=== PATIENT | female | born 1985 | race Caucasian/White ===

== ENCOUNTER 2016-12-26 18:34 | Emergency (ER) | payer SELFPAY ==
[~2016-12-26 18:34] MED LIST: ANSAID100 MG PO; BACTRIM DS TABL1 TA1 PO; BACTRIM DS TABL1 TAB PO; BENTYL10 MG PO; BENZONATATE PO; CIPRO PO; CLINDAMYCIN HC300 MG PO; DARVOCET-N 1001 TA1 PO; E-MYCIN250 MG PO; ERY-TAB500 MG PO; ERYC250 MG PO; FLAGYL PO; FLEXERIL PO; FLEXERIL10 M1 PO; FLEXERIL10 MG PO; LEVAQUIN PO; LORTAB 5/500 TA1 TA1 PO; METRONIDAZOLE250 MG PO; NAPROSYN500 MG PO; PEPCID AC20 MG PO; PEPCID PO; PERCOCET5/325 PO; PHENERGAN25 M1 PO; PREDNISONE PO; PRENATAL1 TA1 PO; SILVADENE TOP; ULTRAM PO; VICODIN 5/1 TAB 5/50 PO; VICODIN 5/500 T1 TAB PO; VICODIN PO; ZOFRAN ODT4 MG PO
== END 2016-12-26 23:59 | disposition left against medical advice (07) ==
LOC: CED 18:34
DX: Z53.21 Procedure and treatment not carried out due to patient leaving prior to being seen by health care provider (principal)